=== PATIENT | female | born 1950 ===

== ENCOUNTER 2017-10-03 09:00 | Emergency (ER) | payer OTHER ==
[~2017-10-03] VITALS: Ht 160 cm; Wt 68.0 kg
[2017-10-03] MEDS ORDERED: LABETALOL HCL200 MG PO (09:05)
[2017-10-03] MEDS ORDERED: LOSARTAN POTASS25 MG PO (09:05)
[2017-10-03] MEDS ORDERED: CATAPRES0.1 MG PO (09:06)
[2017-10-03] MEDS ORDERED: DICLOFENAC POTA50 MG PO (11:23)
== END 2017-10-03 11:34 | disposition home or self-care (01) ==
LOC: ER 09:00
DX: M25.572 Pain in left ankle and joints of left foot (principal)

== ENCOUNTER 2018-09-17 13:10 | Emergency (ER) | payer OTHER ==
[~2018-09-17] VITALS: Ht 160 cm; Wt 65.8 kg
[~2018-09-17 13:10] MED LIST: CATAPRES0.1 MG PO; DICLOFENAC POTA50 MG PO; LABETALOL HCL200 MG PO; LOSARTAN POTASS25 MG PO
[2018-09-17] MEDS ORDERED: JANUVIA100 MG (13:28)
[2018-09-17] MEDS ORDERED: LEXAPRO20 MG (13:28)
[2018-09-17] MEDS ORDERED: SIMVASTATIN10 MG (13:29)
[2018-09-17] MEDS ORDERED: ISORDIL10 MG (13:30)
== END 2018-09-17 16:16 | disposition home or self-care (01) ==
LOC: ER 13:10
DX: M65.872 Other synovitis and tenosynovitis, left ankle and foot (principal)